=== PATIENT | female | born 1940 | race Caucasian/White ===

== ENCOUNTER 2018-10-06 12:59 | Inpatient (IN) | payer BC ==
--- NOTE | 2018-10-06 14:44 | PDOC ---
History of Present Illness - General Chief Complaint: Shortness of Breath Stated Complaint: PCP SENT Time Seen by Provider: 10/06/18 14:43 History Source: Patient - History of Present Illness Initial Comments: 10/06/18 15:10 The patient is an 78 year old female with no reported significant PMH who presents to our ED this afternoon after becoming short of breath in a doctor's office. Patient was with her sister who was being evaluated in sister's PMD office and when patient became acutely short of breath and patient was instructed to come to ED. Endorses 1 week h/o productive (yellowish sputum) cough, subjective fever/chills. H/o evaluation at urgent care on Friday (10/04) at which time she was diagnosed with PNA and found to be Influenza positive. Patient currently completing 5 day course of Tamiflu and also taking an antibiotic (patient cannot recall the name). Lifetime non-smoker, no h/o cardiac evaluation. No contributory family cardiac history. Allergy: Codeine, Morphine Surgical: none reported Social: lifetime non-smoker PMD: Dr. Lund, wishes to switch her care to Dr. Israel As per EMR patient was evaluated in 2013 for cough and shortness of breath. CXR showed atelectasis and cardiomegaly. EMR also notes h/o anemia and osteoporosis. Past History - Past Medical History Allergies/Adverse Reactions: Allergies Allergy/AdvReac Type Severity Reaction Status Date / Time codeine [Codeine] AdvReac Vomiting Verified 10/06/18 13:00 morphine AdvReac Vomiting Verified 10/06/18 13:00 Home Medications: Ambulatory Orders Calcium Carbonate [Calcium] 1,200 mg PO DAILY 11/24/12 Iron &Iron Asp Gly/FA/Mv,Min27 [Corvite Fe Tablet] 1 each PO DAILY 11/24/12 Multivitamin [Multivitamins] 1 each PO DAILY 11/24/12 Cholecalciferol (Vitamin D3) [Vitamin D] 400 unit PO DAILY 07/11/14 Albuterol Sulfate Inhaler - [Ventolin HFA Inhaler -] 2 inh IH Q6H #1 inh Pantoprazole Sodium [Protonix] 40 mg PO ONCE #20 tablet.ec 07/14/14 Anemia: No Asthma: No Cancer: No Cardiac Disorders: No CVA: No COPD: No CHF: No Dementia: No Diabetes: No GI Disorders: No Disorders: No HTN: No Hypercholesterolemia: No Liver Disease: No Seizures: No Thyroid Disease: No - Surgical History Abdominal Surgery: No Appendectomy: No Cardiac Surgery: No Cholecystectomy: No Lung Surgery: No Neurologic Surgery: No Orthopedic Surgery: No - Suicide/Smoking/Psychosocial Hx Smoking History: Never smoked Have you smoked in the past 12 months: No Hx Alcohol Use: No Drug/Substance Use Hx: No Substance Use Type: None Hx Substance Use Treatment: No Review of Systems - Review of Systems Constitutional: No: Chills, Fever HEENTM: No: Recent change in vision Respiratory: Yes: Shortness of Breath, Productive cough. No: Hemoptysis Cardiac (ROS): No: Chest Pain, Lightheadedness, Palpitations, Syncope ABD/GI: No: Constipated, Diarrhea, Nausea, Vomiting *Physical Exam - Vital Signs Last Vital Signs Temp Pulse Resp BP Pulse Ox 97.7 F 100 H 24 H 142/89 100 10/06/18 13:01 10/06/18 13:01 10/06/18 13:01 10/06/18 13:01 10/06/18 13:01 - Physical Exam General Appearance: Yes: Nourished, Thin HEENT: positive: Normal Voice, Hearing Grossly Normal Neck: positive: Normal Thyroid, Supple. negative: Lymphadenopathy (R), Lymphadenopathy (L) Respiratory/Chest: positive: Other (Scattered wheezes B/L; non-labored respiration, intermittently tachypneic) Cardiovascular: positive: S1, S2. negative: Edema Vascular Pulses: Dorsalis-Pedis (R): 2+, Doralis-Pedis (L): 2+ Gastrointestinal/Abdominal: positive: Normal Bowel Sounds, Soft. negative: Distended, Guarding, Rebound, Tenderness Extremity: positive: Normal Capillary Refill, Normal Inspection Integumentary: positive: Normal Color, Dry, Warm Neurologic: positive: Fully Oriented, Alert Moderate Sedation - Procedure Monitoring Vital Signs: Procedure Monitoring Vital Signs Temperature 97.7 F 10/06/18 13:01 Pulse Rate 100 H 10/06/18 13:01 Respiratory Rate 24 H 10/06/18 13:01 Blood Pressure 142/89 10/06/18 13:01 O2 Sat by Pulse Oximetry (%) 100 10/06/18 13:01 Heart Score/ECG Review - ECG Impressions Comment:: 10/07/18 14:59 TWI in aVL (new from EKG dated 2014) no CASSIE/STD, normal intervals, no deviations ED Treatment Course - LABORATORY CBC & Chemistry Diagram: 10/07/18 05:30 10/07/18 05:30 Medical Decision Making - Medical Decision Making 10/06/18 15:36 78 year old female with shortness of breath. Currently being treated for Influenza and PNA. Tachycardic (HR 100) and tachypneic (24) at presentation, other VS unremarkable. Scattered wheezes on exam. Frontal diagnosis: PNA, ? COPD/Asthma exacerbation, Influenza, viral URI. Consider ACS (though less likely). Will obtain CXR, EKG, Troponin, basic labs. Christopher Barajas. Reassess. 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 10/06/18 17:09 Case d/w Dr. Gardiner (cardiology) agrees w/plan of care - will evaluate patient Patient admitted to Dr. Jhonatan Franklin d/w via phone with patient's daughter in [place]. *DC/Admit/Observation/Transfer Diagnosis at time of Disposition: Elevated troponin - Discharge Dispostion Condition at time of disposition: Fair Decision to Admit order: Yes - Referrals - Patient Instructions - Post Discharge Activity
[2018-10-06] MEDS ORDERED: ALBUTEROL SO4 2.5/IPRATROPIUM 0.5 INH SOL 3 ML VIAL.NEB. NEB ONE (14:52)
[2018-10-06 16:07] LABS: BASO % 0.7 % (0-2.0); EOS % 0.3 % (0-4.5); HEMOGLOBIN 13.6 GM/dL (10.7-15.3); LYMPH % 19.3 % (8-40); MCHC 33.9 g/dl (32.0-36.0); MEAN CELL VOLUME 82.7 fl (80-96); MEAN PLT VOLUME 10.1 fl (7.5-11.1); MONO % 5.4 % (3.8-10.2); NEUT % 74.3 % (42.8-82.8); PLATELET COUNT 208 K/MM3 (134-434); RBC 4.84 M/mm3 (3.60-5.2); WHITE BLOOD COUNT 7.6 K/mm3 (4.0-10.0)
--- NOTE | 2018-10-06 16:18 | PDOC ---
Attending Attestation - Resident Resident Name: Sandra Pollack - ED Attending Attestation I have performed the following: I have examined & evaluated the patient, The case was reviewed & discussed with the resident, I agree w/resident's findings & plan, Exceptions are as noted - HPI HPI: 10/06/18 16:17 The patient is a 78 year old female with a significant past medical history of anemia and osteoporosis who presents to the emergency department with shortness of breath since earlier today. The patient reports some associated chest pain with her shortness of breath. Pt was recently diagnosed with PNA and is currently on abx. The patient reports that she was sent in by her PCP today. She denies any other symptoms or complaints. - Physicial Exam PE: 10/06/18 16:35 "GENERAL: Awake, alert, and fully oriented, in no acute distress. HEAD: No signs of trauma EYES: PERRLA, EOMI, sclera anicteric, conjunctiva clear ENT: Auricles normal inspection, hearing grossly normal, nares patent, oropharynx clear without exudates. Moist mucosa NECK: Nontender, no stepoffs, Normal ROM, supple, no lymphadenopathy, JVD, or masses LUNGS: + coarse bilateral wheezes, no crackles HEART: Regular rate and rhythm, normal S1 and S2, no murmurs, rubs or gallops ABDOMEN: Soft, nontender, normoactive bowel sounds. No guarding, no rebound. No masses EXTREMITIES: Normal range of motion, no edema. No clubbing or cyanosis. No cords, erythema, or tenderness NEUROLOGICAL: Cranial nerves II through XII intact. 5/5 strength and sensation in all extremities, Normal speech, normal gait, normal cerebellar function SKIN: Warm, Dry, normal turgor, no rashes or lesions noted. - Critical Care Time Total Critical Care Time: 60 Critical Care Statement: The care of this patient involved high complexity decision making to prevent further life threatening deterioration of the patient 's condition and/or to evaluate & treat vital organ system(s) failure or risk of failure. - Medical Decision Making 10/06/18 16:35 78 F with SOB and CP, found to have PNA and + flu. CXR today does not show clear infiltrate. Will evaluate for cardiac process. - Labs, cultures - Trop, BNP - Nebs for wheezing - abx - Admit 01/15/19 16:51 Trop >2 EKG shows TWI in aVL but no other ischemic changes. Pt reassessed - denies any CP or SOB right now Will give full dose aspirin, heparin gtt Dr. Lucas consulted Pt Admitted
[2018-10-06 16:46] LABS: ALBUMIN 3.9 g/dl (3.4-5.0); ALK PHOS 89 U/L (45-117); ANION GAP 10 MMOL/L (8-16); BILIRUBIN,TOTAL 0.3 mg/dL (0.2-1); BLOOD UREA NITROGEN 19 mg/dL (7-18); CHLORIDE 104 mmol/L (98-107); CO2 26 mmol/L (21-32); CREATININE 0.8 mg/dL (0.55-1.3); GLUCOSE,RANDOM 136 mg/dL (74-106); N-TERMINAL BNP 292.2 pg/ml (5-450); POTASSIUM 4.1 mmol/L (3.5-5.1); SGOT/AST 44 U/L (15-37); SGPT/ALT 41 U/L (13-61); SODIUM 139 mmol/L (136-145); TOT PROT 8.3 g/dl (6.4-8.2)
[2018-10-06] MEDS ORDERED: ASPIRIN 325 MG TABLET PO ONE (16:51)
[2018-10-06] MEDS ORDERED: HEPARIN NA (PORCINE) 5,000 UNITS/ML 1ML VIAL IVPUSH PRN ×2 (16:51)
[2018-10-06] MEDS ORDERED: HEPARIN SOD,PORK IN 0.45% NACL 25,000 UNIT/500 ML INFUS.BAG IVPB SCH (17:00)
[2018-10-06] MEDS ORDERED: ASPIRIN 325 MG TABLET ONE (17:40)
[2018-10-06 18:49] LABS: INR 1.09 (0.83-1.09); PROTHROMBIN TIME (PATIENT) 12.9 SEC (9.7-13.0)
[2018-10-06] MEDS ORDERED: HEPARIN INFUSION - 25,000 UNITS/500 ML INFUS.BAG IVPB ONE (18:52)
[2018-10-06] MEDS ORDERED: AZITHROMYCIN IVPB 500 MG in DEXTROSE 5%-WATER - 250 ML IVPB ONE (19:10)
--- NOTE | 2018-10-06 19:18 | HP ---
Admitting History and Physical - Admission Chief Complaint: pt was waitring in ex [facility] for soster and devoloped cp sob sent her to er. stated wanted me to care for despite telling her to have dr claire. she insisted. had recent pneumonia? resolving History Source: Patient Limitations to Obtaining History: No Limitations - Past Medical History Pulmonary: Yes: Pneumonia ...: No - Smoking History Smoking history: Never smoked Have you smoked in the past 12 months: No - Alcohol/Substance Use Hx Alcohol Use: No Home Medications - Allergies Allergies/Adverse Reactions: Allergies Allergy/AdvReac Type Severity Reaction Status Date / Time codeine [Codeine] AdvReac Vomiting Verified 10/06/18 13:00 morphine AdvReac Vomiting Verified 10/06/18 13:00 - Home Medications Home Medications: Ambulatory Orders Calcium Carbonate [Calcium] 1,200 mg PO DAILY 11/24/12 Iron &Iron Asp Gly/FA/Mv,Min27 [Corvite Fe Tablet] 1 each PO DAILY 11/24/12 Multivitamin [Multivitamins] 1 each PO DAILY 11/24/12 Cholecalciferol (Vitamin D3) [Vitamin D] 400 unit PO DAILY 07/11/14 Albuterol Sulfate Inhaler - [Ventolin HFA Inhaler -] 2 inh IH Q6H #1 inh Pantoprazole Sodium [Protonix] 40 mg PO ONCE #20 tablet.ec 07/14/14 Family Disease History - Family Disease History Family History: Unremarkable Review of Systems - Review of Systems Cardiovascular: reports: Chest Pain Physical Examination Vital Signs: Vital Signs Temperature 97.7 F 10/06/18 13:01 Pulse Rate 100 H 10/06/18 13:01 Respiratory Rate 24 H 10/06/18 13:01 Blood Pressure 142/89 10/06/18 13:01 O2 Sat by Pulse Oximetry (%) 100 10/06/18 13:01 Constitutional: Yes: Well Nourished Eyes: Yes: WNL HENT: Yes: WNL Neck: Yes: WNL Cardiovascular: Yes: WNL Respiratory: Yes: WNL Gastrointestinal: Yes: WNL ...Rectal Exam: Yes: Deferred Renal/: Yes: WNL Breast(s): Yes: WNL Musculoskeletal: Yes: WNL Extremities: Yes: WNL Edema: No Peripheral Pulses WNL: Yes Integumentary: Yes: WNL Neurological: Yes: WNL ...Motor Strength: WNL Psychiatric: Yes: WNL Labs: CBC, BMP 10/06/18 15:40 10/06/18 15:40 Problem List - Problems (1) Chest pain Code(s): R07.9 - CHEST PAIN, UNSPECIFIED (2) Pneumonia Code(s): J18.9 - PNEUMONIA, UNSPECIFIED ORGANISM Assessment/Plan card cosult heparin iv o2 z pack ntg sl prn echo in am ekg in am neb tx prn
[2018-10-06] MEDS ORDERED: IPRATROPIUM BR 0.02% 0.5 MG/2.5 ML VIAL.NEB. NEB PRN (19:20)
[2018-10-06] MEDS ORDERED: FUROSEMIDE 20 MG TABLET (FP) PO ONE (19:45)
[2018-10-06] MEDS ORDERED: FUROSEMIDE 40 MG TABLET (FP) ONE (19:46)
[2018-10-06] MEDS ORDERED: NITROGLYCERIN SUBLINGUAL 1/150 0.4 MG TAB ONE ×2 (19:46→21:04)
[2018-10-06] MEDS ORDERED: HEPARIN NA (PORCINE) 5,000 UNITS/ML 1ML VIAL ONE (19:50)
[2018-10-06] MEDS ORDERED: AZITHROMYCIN IVPB 500 MG/250 ML D5W PRE-DOCKED IVPB ONE (20:00)
[2018-10-06] MEDS: NITROGLYCERIN SUBLINGUAL 1/150 0.4 MG TAB SL SCH ×3 (20:07→21:29)
[2018-10-06] MEDS ORDERED: AZITHROMYCIN IVPB 500 MG/250 ML BAG IVPB ONE (21:04)
[2018-10-06] MEDS ORDERED: ATORVASTATIN CA 10 MG TABLET (FP) ONE (21:42)
[2018-10-06] MEDS: ATORVASTATIN CA 20 MG TABLET (FP) PO SCH (21:46)
[2018-10-07 00:03] VITALS: BMI 24.3
[2018-10-07 06:31] LABS: BASO % 0.3 % (0-2.0); EOS % 0.5 % (0-4.5); HEMATOCRIT 35.8 % (32.4-45.2); HEMOGLOBIN 11.9 GM/dL (10.7-15.3); LYMPH % 40.5 % (8-40); MCH 27.9 pg (25.7-33.7); MCHC 33.3 g/dl (32.0-36.0); MEAN CELL VOLUME 83.7 fl (80-96); MONO % 8.5 % (3.8-10.2); NEUT % 50.2 % (42.8-82.8); PLATELET COUNT 185 K/MM3 (134-434); RBC 4.28 M/mm3 (3.60-5.2); RDW 13.6 % (11.6-15.6); WHITE BLOOD COUNT 7.9 K/mm3 (4.0-10.0)
[2018-10-07 06:57] LABS: ALBUMIN 3.4 g/dl (3.4-5.0); ALK PHOS 73 U/L (45-117); ANION GAP 7 MMOL/L (8-16); BILIRUBIN,TOTAL 0.4 mg/dL (0.2-1); BLOOD UREA NITROGEN 17 mg/dL (7-18); CALCIUM 8.5 mg/dL (8.5-10.1); CHLORIDE 101 mmol/L (98-107); CO2 30 mmol/L (21-32); CREATININE 0.8 mg/dL (0.55-1.3); GLUCOSE,RANDOM 108 mg/dL (74-106); SGOT/AST 41 U/L (15-37); SGPT/ALT 33 U/L (13-61); SODIUM 139 mmol/L (136-145); TOT PROT 7.1 g/dl (6.4-8.2)
--- NOTE | 2018-10-07 09:56 | EKG ---
Test Reason : Blood Pressure : / mmHG Vent. Rate : 103 BPM Atrial Rate : 103 BPM P-R Int : 158 ms QRS Dur : 086 ms QT Int : 366 ms P-R-T Axes : 076 -34 077 degrees QTc Int : 479 ms SINUS TACHYCARDIA POSSIBLE LEFT ATRIAL ENLARGEMENT LEFT AXIS DEVIATION POSSIBLE ANTERIOR INFARCT , AGE UNDETERMINED ABNORMAL ECG WHEN COMPARED WITH ECG OF 07-JUL-2011 11:45, NONSPECIFIC T WAVE ABNORMALITY NO LONGER EVIDENT IN INFERIOR LEADS T WAVE INVERSION NOW EVIDENT IN LATERAL LEADS Confirmed by ASHUTOSH LEE, DOROTEO ([id number]) on 10/07/2018 9:56:31 AM Referred By: Confirmed By:DOROTEO BOYKIN MD
--- NOTE | 2018-10-07 09:56 | EKG ---
Test Reason : Blood Pressure : / mmHG Vent. Rate : 106 BPM Atrial Rate : 106 BPM P-R Int : 148 ms QRS Dur : 078 ms QT Int : 360 ms P-R-T Axes : 076 060 067 degrees QTc Int : 478 ms SINUS TACHYCARDIA CANNOT RULE OUT ANTERIOR INFARCT (CITED ON OR BEFORE 06-OCT-2018) ABNORMAL ECG WHEN COMPARED WITH ECG OF 06-OCT-2018 13:06, QRS AXIS SHIFTED RIGHT T WAVE AMPLITUDE HAS DECREASED IN INFERIOR LEADS NONSPECIFIC T WAVE ABNORMALITY, WORSE IN LATERAL LEADS Confirmed by ASHUTOSH LEE, DOROTEO ([id number]) on 10/07/2018 9:56:17 AM Referred By: Confirmed By:DOROTEO BOYKIN MD
[2018-10-07] MEDS ORDERED: metoPROLOL SUCCINATE 25 MG TAB.SR.24H (FP) PO SCH (10:00)
[2018-10-07] MEDS ORDERED: PANTOPRAZOLE SOD 40 MG SUSPENSION PACKET PO SCH (10:00)
--- NOTE | 2018-10-07 13:42 | PN ---
Progress Note, Physician Chief Complaint: no cp now feels better pt no meds at home pt new to me family at bedside gave tamiflu for pos influenza - Current Medication List Current Medications: Active Medications Atorvastatin Calcium (Lipitor -) 20 mg PO HS [facility] Last Admin: 10/06/18 21:46 Dose: 20 mg Heparin Sodium (Porcine) (Heparin -) 1,000 unit IVPUSH PRN PRN PRN Reason: Heparin Heparin Sodium (Porcine) (Heparin -) 5,000 unit IVPUSH PRN PRN PRN Reason: Heparin Last Admin: 10/06/18 20:07 Dose: 5,000 unit HEPARIN SOD,PORK IN 0.45% NACL (Heparin-1/2ns 25,000 Units/500) 25,000 unit in 500 mls @ 16 mls/hr IVPB TITR FAM; Protocol Last Titration: 10/07/18 03:30 Dose: 800 units/hr, 16 mls/hr Ipratropium [place] (Atrovent 0.02% Nebulizer -) 1 amp NEB Q6H PRN PRN Reason: DYSPEPSIA Stop: 10/13/18 19:21 Metoprolol Succinate (Toprol Xl -) 25 mg PO DAILY [facility] Last Admin: 10/07/18 10:19 Dose: 25 mg Oseltamivir Phosphate (Tamiflu -) 75 mg PO BID [facility] Stop: 10/12/18 12:59 Pantoprazole Sodium (Protonix Packets For Oral Suspension -) 40 mg PO DAILY [facility] Last Admin: 10/07/18 10:19 Dose: 40 mg - Objective Vital Signs: Vital Signs Temperature 98.6 F 10/07/18 04:04 Pulse Rate 89 10/07/18 08:00 Respiratory Rate 16 10/07/18 09:00 Blood Pressure 103/64 10/07/18 08:00 O2 Sat by Pulse Oximetry (%) 100 10/07/18 09:00 Constitutional: Yes: No Distress Eyes: Yes: WNL HENT: Yes: WNL Neck: Yes: WNL Cardiovascular: Yes: WNL Respiratory: Yes: WNL Gastrointestinal: Yes: WNL ...Rectal Exam: Yes: Deferred Genitourinary: Yes: WNL Breast(s): Yes: WNL Musculoskeletal: Yes: WNL Edema: No Peripheral Pulses WNL: Yes Integumentary: Yes: WNL Neurological: Yes: WNL ...Motor Strength: WNL Psychiatric: Yes: WNL Labs: CBC, BMP 10/07/18 05:30 10/07/18 05:30 INR, PTT INR 1.09 (0.83-1.09) 10/06/18 18:20 Problem List - Problems (1) Chest pain Code(s): R07.9 - CHEST PAIN, UNSPECIFIED (2) Pneumonia Code(s): J18.9 - PNEUMONIA, UNSPECIFIED ORGANISM Assessment/Plan nstemi?? cont all tx as is ? evolving ischemia card for ? ttranfer elizabeth card cath when stable
--- NOTE | 2018-10-07 14:25 | EKG ---
Test Reason : Blood Pressure : / mmHG Vent. Rate : 083 BPM Atrial Rate : 083 BPM P-R Int : 146 ms QRS Dur : 078 ms QT Int : 452 ms P-R-T Axes : 066 037 172 degrees QTc Int : 531 ms NORMAL SINUS RHYTHM CANNOT RULE OUT INFERIOR INFARCT , AGE UNDETERMINED CANNOT RULE OUT ANTERIOR INFARCT (CITED ON OR BEFORE 06-OCT-2018) T WAVE ABNORMALITY, CONSIDER LATERAL ISCHEMIA PROLONGED QT ABNORMAL ECG WHEN COMPARED WITH ECG OF 06-OCT-2018 21:17, SERIAL CHANGES OF ANTERIOR INFARCT PRESENT Confirmed by ASHUTOSH LEE, DOROTEO ([id number]) on 10/07/2018 2:25:21 PM Referred By: FAMILIA GILLIAM DR Confirmed By:DOROTEO BOYKIN MD
[2018-10-07] MEDS ORDERED: PT OWN MED DRAWER 7, Y5N ONE ×2 (15:12→21:06)
[2018-10-07] MEDS: OSELTAMIVIR PHOSPHATE 75 MG CAPSULE PO SCH ×2 (15:20→21:13)
--- NOTE | 2018-10-07 16:30 | CON.CARD ---
Consult Consult Specialty:: Cardology - History of Present Illness Chief Complaint: SOB History of Present Illness: This is an 78 year old female no significant past cardiac history. She presented to her PCP with SOB and complained of 1 week h/o productive ( yellowish sputum) cough, subjective fever/chills. She was found to be influenza positive. She complained of chest pain radiating to her back. Patient currently completing 5 day course of Tamiflu and also taking an antibiotic. Troponins are positive 2.79, 3.50, 3.29. Presently without chest pain. - Past Medical History Pulmonary: Yes: Pneumonia ...: No - Alcohol/Substance Use Hx Alcohol Use: No - Smoking History Smoking history: Never smoked Have you smoked in the past 12 months: No Home Medications - Allergies Allergies/Adverse Reactions: Allergies Allergy/AdvReac Type Severity Reaction Status Date / Time codeine [Codeine] AdvReac Vomiting Verified 10/06/18 13:00 morphine AdvReac Vomiting Verified 10/06/18 13:00 - Home Medications Home Medications: Ambulatory Orders Calcium Carbonate [Calcium] 1,200 mg PO DAILY 11/24/12 Iron &Iron Asp Gly/FA/Mv,Min27 [Corvite Fe Tablet] 1 each PO DAILY 11/24/12 Multivitamin [Multivitamins] 1 each PO DAILY 11/24/12 Cholecalciferol (Vitamin D3) [Vitamin D] 400 unit PO DAILY 07/11/14 Albuterol Sulfate Inhaler - [Ventolin HFA Inhaler -] 2 inh IH Q6H #1 inh Pantoprazole Sodium [Protonix] 40 mg PO ONCE #20 tablet.ec 07/14/14 Vital Signs: Vital Signs Temperature 98.4 F 10/07/18 14:00 Pulse Rate 88 10/07/18 14:00 Respiratory Rate 16 10/07/18 14:00 Blood Pressure 118/71 10/07/18 14:00 O2 Sat by Pulse Oximetry (%) 100 10/07/18 09:00 - Other Data Labs, Other Data: CBC, BMP 10/07/18 05:30 10/07/18 05:30 INR, PTT INR 1.09 (0.83-1.09) 10/06/18 18:20 Troponin, BNP 10/06/18 10/06/18 10/07/18 15:40 20:06 05:30 Troponin I 2.79 H* 3.50 H* 3.29 H* B-Natriuretic Peptide 292.2 Troponin, BNP 10/06/18 10/06/18 10/07/18 15:40 20:06 05:30 Troponin I 2.79 H* 3.50 H* 3.29 H* B-Natriuretic Peptide 292.2 Assessment/Plan 78 year old female no significant past cardiac history. She presented to her PCP with SOB and complained of 1 week h/o productive (yellowish sputum) cough, subjective fever/chills. She was found to be influenza positive. She complained of chest pain radiating to her back. Patient currently completing 5 day course of Tamiflu and also taking an antibiotic. Troponins are positive 2.79, 3.50, 3.29. Presently without chest pain. Chest pain Positive troponins EKG with NSSTTW changes Continue IV heparin for now Add aspirin Continue metoprolol Obtain an echocardiogram I called in for a transfer to [facility] and plans for a cardiac cath. Presently there are no isolation beds. I have ordered a repeat Flu Swab and if negative, that will expedite the transfer. Likely to transfer tomorrow.
[2018-10-07 20:26] VITALS: BP 113/67; PULSE 94; TEMP 98
[2018-10-07] MEDS: ATORVASTATIN CA 20 MG TABLET (FP) PO SCH (21:13)
== END 2018-10-07 21:26 | disposition short-term general hospital (02) | DRG 280 ==
LOC: JER 12:59 → JERBED 16:57 → J2W 10-07 00:08
PROVIDERS: ADMIT Family Medicine; ATTEND Family Medicine
DX: I21.4 Non-ST elevation (NSTEMI) myocardial infarction (principal); J11.00 Influenza due to unidentified influenza virus with unspecified type of pneumonia; J98.11 Atelectasis; M81.0 Age-related osteoporosis without current pathological fracture; D64.9 Anemia, unspecified; I51.7 Cardiomegaly
CPT/HCPCS: 36415; 71045-TC-FY; 80053; 82550; 82553; 83880; 84484; 85025; 85610; 85730; 87804; 93005; 93010; 99285-25; J1644